=== PATIENT | female | born 1955 | race Caucasian/White ===

== ENCOUNTER 2017-02-14 17:52 | Observation (INO) | payer OTHER ==
[2017-02-14] MEDS ORDERED: ACETAMINOPHEN 325 MG TABLET PO ONE (18:19)
[2017-02-14 18:33] LABS: Hematocrit 36.2 % (37.0-47.0); Hemoglobin 11.3 gm/dL (12.5-16.0); Mean Cell Volume 78.9 fl (78-100); Mean Corpuscular Hemoglobin 24.6 pg (27-31); Mean Corpuscular Hgb Conc 31.2 g/dl (32-36); Mean Platelet Volume 9.2 fl (6.0-9.5); Neutrophil # 9.3 K/mm3 (1.3-6.0); Neutrophil % 88.9 % (42-75.0); Platelet Count 188 K/mm3 (150-450); Red Blood Count 4.59 M/mm3 (4.2-5.4); White Blood Count 10.4 K/mm3 (4.0-10.5)
[2017-02-14] MEDS ORDERED: ACETAMINOPHEN 325 MG TABLET ONE (18:39)
[2017-02-14 18:44] LABS: Urine Bilirubin Negative (NEGATIVE); Urine Ketone Negative (NEGATIVE); Urine Nitrite Negative (NEGATIVE); Urine Protein 30 mg/dL (NEGATIVE); Urine Urobilinogen Normal (NORMAL); Urine pH 5.5 pH (5.0-7.0)
--- NOTE | 2017-02-14 18:50 | ERNOTE ---
ER Female HPI Date of Service: 02/14/17 Stated Complaint: UTI? ELEVATED BLOODSUGAR Presenting Symptoms: dysuria Time Seen by Provider: 02/14/17 18:06 Source: patient, RN notes reviewed Exam Limitations: no limitations Immunizations: IMMUNIZATION HX Immunizations Up to Date Yes History of Influenza Vaccine Yes Hx Pneumococcal Vaccination Yes Allergies/Adverse Reactions: Allergies clarithromycin [From Biaxin] Allergy (Verified 02/14/17 18:02) erythromycin base [Erythromycin Base] Allergy (Verified 02/14/17 18:02) tobramycin sulfate [From Tobrex] Allergy (Verified 02/14/17 18:02) Home Medications: HOME MEDICATIONS Aspirin [Aspirin Chewable] 81 mg PO DAILY 12/05/12 [Last Taken Unknown] Calcium Carbonate/Vitamin D3 [Calcium 600 + Vit D 200 Tablet] 1 each PO DAILY [Last Taken Unknown] Insulin Glargine,Hum.rec.anlog [Lantus] 20 unit SQ BID 12/05/12 [Last Taken Unknown] Insulin Lispro [Humalog] 5 unit SQ TID 12/05/12 [Last Taken Unknown] Lisinopril [Zestril] 10 mg PO DAILY 12/05/12 [Last Taken Unknown] Multivitamin [Multivitamins] 1 each PO DAILY 12/05/12 [Last Taken Unknown] Mycophenolate Mofetil [Cellcept] 500 mg PO BID 12/05/12 [Last Taken Unknown] Pantoprazole Sodium [Protonix] 40 mg PO DAILY 12/05/12 [Last Taken Unknown] Simvastatin [Zocor] 20 mg PO HS 12/05/12 [Last Taken Unknown] amLODIPine BESYLATE [Norvasc (Amlodipine)] 5 mg PO DAILY 12/05/12 [Last Taken Unknown] Prograf 1 mg PO BID 12/07/12 [Last Taken Unknown] Magnesium 100 mg PO DAILY 12/01/14 [Last Taken Unknown] Omeprazole 40 mg PO DAILY 12/01/14 [Last Taken Unknown] - History of Present Illness Narrative: 61 y/o female ambulatory to the ED for a possible UTI. She had been having urinary frequency for several days, but today began having a fever and chills. She also reports nausea and pain over her one remaining kidney that is a donor kidney. She took Zofran for her nausea and this helped. She has not had any Tylenol for her fever since 1100. Associated Symptoms: Present: fever/chills, nausea, abdominal pain, dysuria, urinary frequency. Absent: diaphoresis, vomiting, loss of bladder control, low back pain Prior Treatment: Present: recently seen. Absent: currently on antibiotics Review of Systems - Review of Systems Constitutional: Present: fever, chills, fatigue, malaise EYE: Present: no symptoms reported ENT: Present: no symptoms reported Respiratory: Absent: shortness of breath, cough Cardiology: Absent: chest pain, edema Gastrointestinal/Abdominal: Present: nausea, abdominal pain. Absent: vomiting, diarrhea Genitourinary: Present: frequency, dysuria. Absent: hematuria, decreased urinary output Musculoskeletal: Absent: back pain, muscle pain Skin: Absent: rash, lesions Neurological: Absent: headache, dizziness/light-headedness Endocrine: Present: no symptoms reported Hematologic/Lymphatic: Present: no symptoms reported Psych: Present: no symptoms reported - Patient's Past Medical History Patient History - Medical: Diabetes Type 2, GERD, Obesity, Renal Disease, Other - Polycystic kidney disease, polycystic liver disease Patient History - Cardiac/Respiratory: Hypertension, Hyperlipidemia Patient History - Cancer: No Hx of Cancer Patient History - Surgical Procedures: Cholecystectomy, Colonoscopy, D & C, Other - Kidney transplant, Nephrectomy, Thyroid biopsy, Parathyroid surgery, Hernia Repair Patient History - Other: None LMP (females 10-50): Menopausal - Social History Living Situations: spouse Psych History: No pertinent hx Smoking Status: Former smoker Alcohol Use: none Drug Use: none - Immunizations Immunizations Up to Date: Yes Hx Pneumococcal Vaccination: Yes History of Influenza Vaccine: Yes Physical Exam - Physical Exam General Appearance: Present: wd/wn, alert, no apparent distress Eye Exam: Normal inspection: bilateral, PERRL: bilateral Ears, Nose, Throat: Present: normal ENT inspection Neck: Present: normal inspection, nontender, supple Respiratory: Present: no respiratory distress, normal breath sounds, no accessory muscle use, lungs clear Cardiovascular/Chest: Present: regular rate, rhythm, no murmur Gastrointestinal/Abdominal: Present: normal bowel sounds, nondistended, soft, tenderness - RLQ over transplanted kidney, hepatomegaly Back Exam: Present: normal inspection, normal range of motion, no CVA tenderness Extremity Exam: Present: normal inspection, normal range of motion, no edema Neurological Exam: Present: alert, oriented, normal mood/affect, no motor/ sensory deficits Skin Exam: Present: normal color, diaphoresis Lymphatic Exam: Present: no adenopathy ED Progress - Results and Orders Patient's Lab Results:: I have reviewed the patient's lab results. - Vital Signs Patient's Vital Signs:: I have reviewed the patient's vital signs. Vital Signs: Vital Signs 02/14/17 17:54 Temperature 37.8 C H Pulse Rate 104 H Respiratory 16 Rate Blood Pressure 152/80 O2 Sat by Pulse 93 Oximetry - Progress/Reassessment Chief Complaint: Urinary Tract Problems Progress:: Unchanged Plan - Plan Plan: 1924 - Hospitalist Astrid Rodrigues NP contacted regarding admission. Patient with pyelonephritis and only one kidney that is a donor kidney. Her BUN is up from her baseline and her GFR is down. She had to take Zofran prior to coming to the ED this evening so that she would be able to tolerate her anti-rejection medications. It may be difficult for her to tolerate an oral antibiotic at home , as well as her routine medications. She is also diabetic with a blood glucose of 268 on her CMP. A urine culture and blood cultures are pending. The patient will be admitted overnight for IV antibiotics and fluids, and so that her renal function can be monitored. Departure Clinical Impression: Acute pyelonephritis, Renal transplant, status post - Departure Disposition: [facility] Condition: Stable
[2017-02-14 18:58] LABS: Albumin * 3.3 gm/dl (3.4-5.0); Anion Gap 12.8 mmol/L (6.8-13.8); BUN/Creatinine Ratio 22.3 (9.0-21.6); Bilirubin, Total 0.5 mg/dL (0.0-1.1); Ca. Corrected For Albumin 8.6 mg/dL (8.4-10.2); Calcium * 8.4 mg/dL (7.9-10.9); Carbon Dioxide 26.5 mmol/L (24-32.6); Potassium 4.3 mmol/L (3.4-4.6); Total Protein 6.9 gm/dL (6.2-8.2)
[2017-02-14 19:11] LABS: Urine Appearance Slightly Cloudy; Urine Bacteria 2+; Urine Blood 5 /ul (NEGATIVE); Urine Color Yellow; Urine RBC 0-5 /hpf (0-5); Urine WBC >50 /hpf (0-5)
[2017-02-14 19:12] LABS: Urine Yeast Few - 1+
[2017-02-14 19:13] LABS: Urine Squamous Epithelial Cell Moderate - 2+ /hpf; Urine Transitional Epi Cells Few - 1+ /hpf
[2017-02-14] MEDS ORDERED: SIMVASTATIN 20 MG TABLET PO SCH (21:00)
[2017-02-14] MEDS ORDERED: SIMVASTATIN 20 MG TABLET ONE (21:52)
[2017-02-14] MEDS ORDERED: INSULIN GLARGINE,HUM.REC.ANLOG 100 UNITS/ML VIAL SC ONE (21:52)
[2017-02-14] MEDS: MYCOPHENOLATE MOFETIL 500 MG TABLET PO SCH (21:57)
[2017-02-14] MEDS: NORMAL SALINE 1,000 ML IV PRN (21:57)
[2017-02-14] MEDS ORDERED: LEVOFLOXACIN/D5W 750 MG/150 ML BAG IV SCH (22:00)
--- NOTE | 2017-02-14 22:07 | HP ---
Chief Complaint - Chief Complaint Date of Service: 02/14/17 Time of Service: 22:06 Chief Complaint: fever, chills, urinary frequency, dysuria, hx kidney transplant. History of Present Illness: Lindsey is a 61 year old female patient of Dr. Carrizales with a PMH of ESRD secondary to polycystic kidney disease, s/p kidney transplant 10 years ago with bilateral [place] nephrectomies in 2008 currently on immunosuppressive medications (cellcept and prograf), DM, HTN, HLD, iron def. anemia and polycystic liver disease who presented to the ER tonight with dysuria and urinary frequency x1 week. Urinary sample suspicious of infection, although sample is poor given high number of epithelial cells. However, patient is at an increased risk of infection given immunocompromised status. ER eval revealed normal wbc but early left shift noted. creatinine 1.30 (normal 0.9-1.1 ) with GFR 44 (normal 55-60). temp 37.8 in ER, however, patient revealed to me after admission that she had spiked fevers as high as 103 degrees at home. Patient to be admitted for uti, suspected pylonephritis, and further workup for observation and administration of iv antibiotics. Patient has recently seen kidney transplant team at [facility] 01/2017. 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 Negative C4D. moderate arteriolar sclerosis with hyalinosis. Recommend prograf levels between 4-6. - Patient's Past Medical History Patient History - Medical: Anemia, Diabetes Type 2 Insulin Dependent, GERD, Liver Disease, Obesity, Renal Disease, Renal Failure, Other Patient History - Cardiac/Respiratory: Hypertension, Hyperlipidemia Patient History - Cancer: No Hx of Cancer Patient History - Surgical Procedures: Cholecystectomy, Colonoscopy - 2012 - repeat in 10 years, D & C, Other - kidney transplact 01/24/07; bilateral [place]ch[place] nephrectomies in 2008. , Hernia Repair Patient History - Other: Immunosuppresive Tx >3mo, Organ Transplant LMP (females 10-50): Menopausal - Family History Father Family History - Medical: , Other Family History - Cardiac/Respiratory: Hypertension, Hyperlipidemia - Social History Living Situations: spouse Psych History: No pertinent hx Smoking Status: Former smoker Have you smoked in the past 12 months: No Alcohol Use: none Drug Use: none - Immunizations Immunizations Up to Date: Yes Hx Pneumococcal Vaccination: Yes History of Influenza Vaccine: Yes Review Of Systems (GEN) - Review of Systems Generalized/Overall Review: Present: Chills, Fever, Malaise EENTM: Present: No Symptoms Reported Respiratory: Present: No Symptoms Reported Cardiac: Present: No Symptoms Reported Abdominal: Present: Nausea. Absent: Vomiting, Constipation, Diarrhea Genitourinary: Present: Burning, Frequency. Absent: Hematuria Musculoskeletal: Present: No Symptoms Reported Neurological: Present: No Symptoms Reported Skin: Present: No Symptoms Reported Endocrine: Present: No Symptoms Reported Misc: All systems neg except as marked Immunizations: IMMUNIZATION HX Immunizations Up to Date Yes History of Influenza Vaccine Yes Hx Pneumococcal Vaccination Yes Allergies/Adverse Reactions: Allergies Allergy/AdvReac Type Severity Reaction Status Date / Time clarithromycin [From Biaxin] Allergy Verified 02/14/17 18:02 erythromycin base Allergy Verified 02/14/17 18:02 [Erythromycin Base] tobramycin sulfate Allergy Verified 02/14/17 18:02 [From Tobrex] Home Medications: HOME MEDICATIONS Aspirin [Aspirin Chewable] 81 mg PO DAILY 12/05/12 [Last Taken Unknown] Calcium Carbonate/Vitamin D3 [Calcium 600 + Vit D 200 Tablet] 1 each PO DAILY [Last Taken Unknown] Insulin Lispro [Humalog] 5 unit SQ TID 12/05/12 [Last Taken Unknown] Lisinopril [Zestril] 10 mg PO DAILY 12/05/12 [Last Taken Unknown] Multivitamin [Multivitamins] 1 each PO DAILY 12/05/12 [Last Taken Unknown] Mycophenolate Mofetil [Cellcept] 500 mg PO BID 12/05/12 [Last Taken Unknown] Pantoprazole Sodium [Protonix] 40 mg PO DAILY 12/05/12 [Last Taken Unknown] Simvastatin [Zocor] 20 mg PO HS 12/05/12 [Last Taken Unknown] amLODIPine BESYLATE [Norvasc (Amlodipine)] 5 mg PO DAILY 12/05/12 [Last Taken Unknown] Prograf 1 mg PO BID 12/07/12 [Last Taken Unknown] Magnesium 100 mg PO DAILY 12/01/14 [Last Taken Unknown] Omeprazole 40 mg PO DAILY 12/01/14 [Last Taken Unknown] Insulin Glargine,Hum.rec.anlog [Lantus] 30 units SC DAILY 02/14/17 [Last Taken Unknown] Insulin Glargine,Hum.rec.anlog [Lantus] 40 units SC HS 02/14/17 [Last Taken Unknown] Exam - Exam Vital Signs: Vital Signs - Last Taken Temp 36.7 C 02/14/17 21:06 Pulse 88 02/14/17 21:06 Resp 16 02/14/17 21:06 BP 105/69 02/14/17 21:06 Pulse Ox 95 02/14/17 21:06 Constitutional: Present: Alert, Oriented x3, Cooperative, No distress ENT Exam: Present: hearing grossly normal Eye Exam: bilateral eye: normal inspection Neck: Present: full range of motion, supple Back Exam: Present: no vertebral tenderness Breasts: Present: Exam deferred Respiratory: Present: chest non-tender, lungs clear, normal breath sounds, no respiratory distress, no accessory muscle use Cardiovascular/Chest: Present: normal peripheral pulses, regular rate, rhythm, no chest tenderness, no edema, no JVD Peripheral Pulses: dorsalis-pedis (R): 2+, dorsalis-pedis (L): 2+, radial (R): 2 +, radial (L): 2+ Abdomen: Present: Normal bowel sounds, soft, nondistended, tender - RLQ mild to moderate tenderness to palpation - this is where her transplanted kidney is placed. /Rectal: Present: Exam deferred Skin Exam: Present: warm/dry, no cyanosis, other - small area 2 cm x 2 cm in the RLQ noted with erythema. Diagnostic Studies: Laboratory Results WBC 10.4 K/mm3 (4.0-10.5) 02/14/17 18:30 RBC 4.59 M/mm3 (4.2-5.4) 02/14/17 18:30 Hgb 11.3 gm/dL (12.5-16.0) L 02/14/17 18:30 Hct 36.2 % (37.0-47.0) L 02/14/17 18:30 MCV 78.9 fl (78-100) 02/14/17 18:30 MCH 24.6 pg (27-31) L 02/14/17 18:30 MCHC 31.2 g/dl (32-36) L 02/14/17 18:30 RDW 15.0 % (11.5-14.0) H 02/14/17 18:30 Plt Count 188 K/mm3 (150-450) 02/14/17 18:30 MPV 9.2 fl (6.0-9.5) 02/14/17 18:30 Immature Gran % (Auto) 0.40 % (0.001-0.429) 02/14/17 18:30 Immature Gran # (Auto) 0.04 K/mm3 (0.000-0.0310) H 02/14/17 18:30 Neutrophils % 88.9 % (42-75.0) H 02/14/17 18:30 Lymphocytes % 3.8 % (20-51) L 02/14/17 18:30 Monocytes % 6.3 % (0.0-9) 02/14/17 18:30 Eosinophils % 0.3 % (0.0-3.0) 02/14/17 18:30 Basophils % 0.3 % (0.0-1.0) 02/14/17 18:30 Nucleated RBC % 0.0 k/mm3 (0-1) 02/14/17 18:30 Neutrophils # 9.3 K/mm3 (1.3-6.0) H 02/14/17 18:30 Lymphocytes # 0.4 k/mm3 (1.5-3.5) L 02/14/17 18:30 Monocytes # 0.7 k/mm3 (0.0-1.0) 02/14/17 18:30 Eosinophils # 0.0 k/mm3 (0.0-0.7) 02/14/17 18:30 Absolute Basophils 0.0 k/mm3 (0.0-0.1) 02/14/17 18:30 Sodium 140 mmol/L (132-142) 02/14/17 18:30 Plasma Sodium 143 mmol/L (130-142) H 02/14/17 18:30 Potassium 4.3 mmol/L (3.4-4.6) 02/14/17 18:30 Chloride 105 mmol/L (97-106) 02/14/17 18:30 Carbon Dioxide 26.5 mmol/L (24-32.6) 02/14/17 18:30 Anion Gap 12.8 mmol/L (6.8-13.8) 02/14/17 18:30 BUN 29 mg/dL (3-23) H 02/14/17 18:30 Creatinine 1.30 mg/dL (0.4-1.4) 02/14/17 18:30 Est GFR (Non-Af Amer) 44 mL/min (60-130) L D 02/14/17 18:30 BUN/Creatinine Ratio 22.3 (9.0-21.6) H 02/14/17 18:30 Random Glucose 268 mg/dL (70-110) H 02/14/17 18:30 Lactic Acid, Venous 1.0 mmol/L (0.4-1.9) 02/14/17 18:30 Calcium 8.4 mg/dL (7.9-10.9) 02/14/17 18:30 Calcium Adj for Albumin 8.6 mg/dL (8.4-10.2) 02/14/17 18:30 Total Bilirubin 0.5 mg/dL (0.0-1.1) 02/14/17 18:30 AST 16 U/L (0-48) 02/14/17 18:30 ALT 17 U/L (19-67) L 02/14/17 18:30 Alkaline Phosphatase 92 U/L (50-170) 02/14/17 18:30 Total Protein 6.9 gm/dL (6.2-8.2) 02/14/17 18:30 Albumin 3.3 gm/dl (3.4-5.0) L 02/14/17 18:30 Procalcitonin 1.03 ng/mL (0.05-0.50) H 02/14/17 18:30 Urine Color Yellow 02/14/17 18:06 Urine Appearance Slightly cloudy 02/14/17 18:06 Urine pH 5.5 pH (5.0-7.0) 02/14/17 18:06 Ur Specific [place] 1.010 SP.GR. (1.005-1.010) 02/14/17 18:06 Urine Protein 30 mg/dL (NEGATIVE) H 02/14/17 18:06 Urine Glucose (UA) Negative mg/dL (NEGATIVE) 02/14/17 18:06 Urine Ketones Negative mg/dL (NEGATIVE) 02/14/17 18:06 Urine Blood 5 /ul (NEGATIVE) H 02/14/17 18:06 Urine Nitrate Negative (NEGATIVE) 02/14/17 18:06 Urine Bilirubin Negative mg/dl (NEGATIVE) 02/14/17 18:06 Prot Sulfosalicylic Acd 1+ mg/dL (0) 02/14/17 18:06 Urine Urobilinogen Normal EU/dl (NORMAL) 02/14/17 18:06 Ur Leukocyte Esterase 500 /ul (NEGATIVE) H 02/14/17 18:06 Urine RBC 0-5 /hpf (0-5) 02/14/17 18:06 Urine WBC >50 /hpf (0-5) H 02/14/17 18:06 Ur Epithelial Cells >25 /hpf (0-5) H 02/14/17 18:06 Ur Squamous Epith Cells Moderate - 2+ /hpf (NONE) H 02/14/17 18:06 Ur Transition Epith Cell Few - 1+ /hpf (NONE) H 02/14/17 18:06 Urine Bacteria 2+ (NONE) H 02/14/17 18:06 Urine Yeast Few - 1+ (NONE) H 02/14/17 18:06 Urine Culture Comments Culture to follow 02/14/17 18:06 Serum Ketones Negative (NEGATIVE) 02/14/17 18:30 Assessment/Plan - Narrative Narrative: UTI, possible pylonephritis - urine analysis suspecious of infection, but sample is poor - patient at high risk for infection given immunocompromised status - patient admitted for observation and iv antibiotics - Levaquin 750 mg daily - Day #1 - spoke with on-call physician at [facility] with kidney transplant team, who did not recommend transfer of patient at this time - on-call physician recommended levaquin as starting antibiotic, urine culture and blood cultures pending. - observe patient overnight and re-evaluate in the am. - NO probiotics due to immuncompromised status. - await urine culture final results - GFR lower than patient's normal - likely from dehydration secondary to poor oral intake - patient has been taking zofran po for nausea prior to ER - continue zofran prn nausea - hydrate gently with iv fluids overnight. Immunosupression - patient placed in reverse isolation while admitted, as a precaution. - currently taking prograf and cellcept - states she takes prograf at 6am and 6 pm - recheck prograf level at 6 am on 01/16/17(TIMED). - most recent records from [facility] (01/2017) - want prograf level between 4-6. 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 C4D negative. - moderate arteriolar sclerosis with hyalinosis. - no s/s of acute rejection. - will need to f/u with [facility] sooner than 1 year recommended due to recent infection. Diabetes - random glucose in ER elevated - serum ketones drawn after admission - NEGATIVE - likely elevated secondary to current infection - accu-checks ACHS - use patient's own sliding scale doses (home dose) HTN - vital signs q 4 hours Code status: Full Code VTE: early ambulation / SCDs while in bed GI proph: protonix po. 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
[2017-02-15] MEDS ORDERED: ACETAMINOPHEN 325 MG TABLET PO PRN (04:11)
[2017-02-15] MEDS ORDERED: TACROLIMUS ANHYDROUS 0.5 MG CAPSULE PO SCH (06:00)
[2017-02-15 06:49] LABS: Hematocrit 33.6 % (37.0-47.0); Hemoglobin 10.6 gm/dL (12.5-16.0); Mean Cell Volume 79.2 fl (78-100); Mean Corpuscular Hgb Conc 31.5 g/dl (32-36); Mean Platelet Volume 9.7 fl (6.0-9.5); Neutrophil % 88.6 % (42-75.0); Platelet Count 171 K/mm3 (150-450); Red Blood Count 4.24 M/mm3 (4.2-5.4); Red Cell Distribution Width 14.9 % (11.5-14.0); White Blood Count 10.1 K/mm3 (4.0-10.5)
[2017-02-15 07:04] LABS: Albumin * 2.9 gm/dl (3.4-5.0); Anion Gap 12.8 mmol/L (6.8-13.8); BUN/Creatinine Ratio 20.9 (9.0-21.6); Bilirubin, Total 0.7 mg/dL (0.0-1.1); Calcium * 8.4 mg/dL (7.9-10.9); Carbon Dioxide 25.5 mmol/L (24-32.6); Potassium 4.3 mmol/L (3.4-4.6); Total Protein 6.2 gm/dL (6.2-8.2)
[2017-02-15 07:47] LABS: Urine Bilirubin Negative (NEGATIVE); Urine Ketone Negative (NEGATIVE); Urine Nitrite Negative (NEGATIVE); Urine Protein 15 mg/dL (NEGATIVE); Urine Specific Gravity <=1.005 SP.GR. (1.005-1.010); Urine Urobilinogen Normal (NORMAL)
[2017-02-15 07:54] LABS: Urine Appearance Slightly Cloudy; Urine Bacteria 2+; Urine Blood 10 /ul (NEGATIVE); Urine Color Yellow; Urine RBC 0-5 /hpf (0-5)
[2017-02-15 07:55] LABS: Urine Renal Epithelial Cell Few - 1+ /hpf
[2017-02-15] MEDS: NORMAL SALINE 1,000 ML IV PRN ×2 (08:12→10:41)
[2017-02-15] MEDS: MYCOPHENOLATE MOFETIL 500 MG TABLET PO SCH (08:13)
[2017-02-15] MEDS ORDERED: NORMAL SALINE 1,000 ML IV PRN (08:42)
[2017-02-15] MEDS ORDERED: INSULIN GLARGINE,HUM.REC.ANLOG 100 UNITS/ML VIAL SC SCH ×2 (09:00→21:00)
[2017-02-15] MEDS ORDERED: INSULIN LISPRO 100 UNITS/ML VIAL SC SCH ×3 (09:00→12:00)
[2017-02-15] MEDS ORDERED: MULTIVIT WITH IRON-MINERALS 1 TAB TABLET PO SCH (09:00)
[2017-02-15] MEDS ORDERED: ASPIRIN 81 MG TAB.CHEW PO SCH (09:00)
[2017-02-15] MEDS ORDERED: PANTOPRAZOLE SODIUM 40 MG TABLET.EC PO SCH (09:00)
[2017-02-15] MEDS ORDERED: CALCIUM CARBONATE/VITAMIN D3 1 TAB TABLET PO SCH (10:00)
[2017-02-15 10:56] VITALS: BP 124/68
[2017-02-15 14:27] LABS: Anion Gap 12.8 mmol/L (6.8-13.8); BUN/Creatinine Ratio 21.4 (9.0-21.6); Calcium * 7.9 mg/dL (7.9-10.9); Carbon Dioxide 25.8 mmol/L (24-32.6); Estimated Creat Clear 32.2; Potassium 4.6 mmol/L (3.4-4.6)
--- NOTE | 2017-02-15 15:11 | DS ---
(1) UTI (urinary tract infection) Problem: Acute Qualifiers: Urinary tract infection type: acute cystitis (2) Immunosuppression Problem: Chronic (3) Renal transplant, status post Problem: Chronic Description of Stay: ADMISSION DATE: 02/14/2017 DISCHARGE DATE: 02/15/2017 ADMISSION HPI by BAKARI Sanchez: Lindsey is a 61 year old female patient of Dr. Carrizales with a PMH of ESRD secondary to polycystic kidney disease, s/p kidney transplant 10 years ago with bilateral [place] nephrectomies in 2008 currently on immunosuppressive medications (cellcept and prograf), DM, HTN, HLD, iron def. anemia and polycystic liver disease who presented to the ER tonight with dysuria and urinary frequency x1 week. Urinary sample suspicious of infection, although sample is poor given high number of epithelial cells. However, patient is at an increased risk of infection given immunocompromised status. ER eval revealed normal wbc but early left shift noted. creatinine 1.30 (normal 0.9-1.1 ) with GFR 44 (normal 55-60). temp 37.8 in ER, however, patient revealed to me after admission that she had spiked fevers as high as 103 degrees at home. Patient to be admitted for uti, suspected pylonephritis, and further workup for observation and administration of iv antibiotics. Patient has recently seen kidney transplant team at [facility] 01/2017. 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 Negative C4D. moderate arteriolar sclerosis with hyalinosis. Recommend prograf levels between 4-6. HOSPITAL COURSE: The patient was monitored in the hospital overnight and her time spent in the hospital was uneventful. The patient was treated with IV fluid hydration with an improvement in her creatinine at the time of discharge. The patient was also treated with IV antibiotics during her stay which were transitioned to oral antibiotics at discharge. Patient was discharged home in stable condition and instructed to call or return to the emergency department if any issues or concerns arise. This is Lisette PCP, Dr. Carrizales, on Monday02/17/2017 @ 1:30PM NEW OR CHANGED MEDICATIONS: Levofloxacin 750 mg PO daily X 4 additional days DISCONTINUED MEDICATIONS: None RADIOLOGY REPORTS: Chest x-ray on 02/15/2017 showed: Hypoventilatory changes with likely bibasilar linear atelectasis. Scarring could have a similar appearance. No focal consolidation. Lower lung peribronchial thickening is suggested; correlate for bronchitis. No specific radiographic findings to suggest fluid overload or congestive heart failure. Procedures Performed: none Discharge Disposition: Home self care Disposition: Home self-care Condition: Stable Discharge Activity: Activity as tolerated Discharge Diet: Resume usual diet Referrals: Lisette Carrizales DO [Primary Care Provider] - Problem Oriented Discharge Instructions to Patient/Family: Urinary Tract Infection, Adult, [id number] Additional Patient Instructions (free text): Follow-up with Dr. Carrizales on 02/17/2017 @ 1:30PM Prescriptions (Any new or edited meds): RX: Levofloxacin [Levaquin] 750 mg PO DAILY #4 tablet Complete Home Medications List: Complete Home Medication List: RX: Aspirin [Aspirin Chewable] 81 mg PO DAILY 12/05/12 RX: Calcium Carbonate/Vitamin D3 [Calcium 600-Vit D3 200 Tablet] 1 each PO DAILY 12/05/12 RX: Insulin Lispro [Humalog] See Protocol SQ TID 12/05/12 RX: Lisinopril [Zestril] 10 mg PO DAILY 12/05/12 RX: Multivitamin [Multivitamins] 1 each PO DAILY 12/05/12 RX: Mycophenolate Mofetil [Cellcept] 500 mg PO BID 12/05/12 RX: Pantoprazole Sodium [Protonix] 40 mg PO DAILY 12/05/12 RX: Simvastatin [Zocor] 20 mg PO HS 12/05/12 RX: amLODIPine BESYLATE [Norvasc] 5 mg PO DAILY 12/05/12 Prograf 1 mg PO BID 12/07/12 Magnesium 100 mg PO DAILY 12/01/14 Omeprazole 40 mg PO DAILY 12/01/14 RX: Insulin Glargine,Hum.rec.anlog [Lantus] 30 units SC DAILY 02/14/17 RX: Insulin Glargine,Hum.rec.anlog [Lantus] 40 units SC 02/14/17 RX: Levofloxacin [Levaquin] 750 mg PO DAILY #4 tablet 02/15/17
[2017-02-15] MEDS ORDERED: MYCOPHENOLATE MOFETIL 500 MG TABLET PO SCH (18:00)
== END 2017-02-15 16:01 | disposition home or self-care (01) ==
LOC: ER 17:52 → MS 19:32
PROVIDERS: ADMIT Internal Medicine; ATTEND Internal Medicine
DX: N10 Acute pyelonephritis (principal); B95.1 Streptococcus, group B, as the cause of diseases classified elsewhere; Z94.0 Kidney transplant status; E11.65 Type 2 diabetes mellitus with hyperglycemia; Z79.4 Long term (current) use of insulin; I12.9 Hypertensive chronic kidney disease with stage 1 through stage 4 chronic kidney disease, or unspecified chronic kidney disease; N18.9 Chronic kidney disease, unspecified; Z87.891 Personal history of nicotine dependence; E78.5 Hyperlipidemia, unspecified; D50.9 Iron deficiency anemia, unspecified; Q61.3 Polycystic kidney, unspecified; Q44.6 Cystic disease of liver; E66.9 Obesity, unspecified; K21.9 Gastro-esophageal reflux disease without esophagitis
CPT/HCPCS: 36415; 71020; 80048; 80053; 81001; 82009; 83605; 84145; 85025; 87040; 87077; 87086; 87186; 96365; 96372; 99283; G0378